=== PATIENT | male | born 1985 | race Two or more races ===

== ENCOUNTER 2025-02-21 21:36 | Emergency (ER) | payer SELFPAY ==
[2025-02-21 21:45] VITALS: BMI 26.5
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
[2025-02-21 21:49] VITALS: BP 146/88; PULSE 110; RESP 19; TEMP 36.6; O2SAT 96
== END 2025-02-21 22:05 ==
LOC: SERX 22:47
PROVIDERS: Emergency Provider Emergency Medicine
DX: Z02.89 Encounter for other administrative examinations (principal)
CPT/HCPCS: 99281